=== PATIENT | male | born 1975 | race Caucasian/White ===

== ENCOUNTER 2018-05-18 08:30 | Emergency (ER) | payer OTHER ==
[~2018-05-18] VITALS: Ht 167.6 cm; Wt 116.1 kg
[2018-05-18 08:43] VITALS: BP 146/95
--- NOTE | 2018-05-18 08:52 | NUR ---
PT AMB TO BED2.
--- NOTE | 2018-05-18 08:52 | NUR ---
gave report to Devante BECKWITH
--- NOTE | 2018-05-18 08:53 | NUR ---
42/M bib with c/o right frontal/parietal head pain since the AM with blurry vision, nausea, left hand numbness, and shakiness. No smile/facial asymmetry noted.DENIES TRAUMA OR ACCIDENT. SKIN IS PINK/WARM/DRY; AAOX4 WITH EVEN AND STEADY GAIT; LUNGS CLEAR BL; PATIENT STATES PAIN OF 9/10 AT THIS TIME. PATIENT POSITIONED FOR COMFORT; HOB ELEVATED; BEDRAILS UP X2; BED DOWN. ER MD MADE AWARE OF PT STATUS.
--- NOTE | 2018-05-18 09:07 | NUR ---
Radha botello in ED - 05/18/18 at 0907 by [facility] Patient discharged with v/s stable. Written and verbal after care instructions given and explained. Patient verbalized understanding. Ambulatory with steady gait. All questions addressed prior to discharge. Advised to follow up with PMD.
--- NOTE | 2018-05-18 09:23 | NUR ---
EKG AT BEDSIDE.
--- NOTE | 2018-05-18 09:37 | NUR ---
Patient being evaluated by DR CAR at bedside.
[2018-05-18] MEDS ORDERED: ACETAMINOPHEN 325 MG TAB PO ONE (09:40)
[2018-05-18] MEDS ORDERED: PROCHLORPERAZINE 10 MG/2 ML VIAL IM ONE (09:40)
--- NOTE | 2018-05-18 09:49 | NUR ---
PT TAKEN TO CT VIA W/C, ACCOMPANIED BY RAMP SERVICE AGENT.
--- NOTE | 2018-05-18 10:00 | NUR ---
PT RETURNED BACK FROM CT.
--- NOTE | 2018-05-18 10:38 | NUR ---
Patient being reevaluated by DR CAR at bedside.
[2018-05-18 10:40] VITALS: BP 140/91
--- NOTE | 2018-05-18 10:40 | NUR ---
Patient discharged with v/s stable. Written and verbal after care instructions given and explained. Patient alert, oriented and verbalized understanding of instructions. Ambulatory with steady gait. All questions addressed prior to discharge. ID band removed. Patient advised to follow up with PMD. Rx of COMPAZINE given. Patient educated on indication of medication including possible reaction and side effects. Opportunity to ask questions provided and answered.
== END 2018-05-18 10:40 | disposition home or self-care (01) ==
LOC: MED 08:30
DX: R51 Headache (principal); H53.8 Other visual disturbances; R11.0 Nausea; J45.909 Unspecified asthma, uncomplicated
CPT/HCPCS: 70450; 82948; 93005; 96372; 99284; J0780

== ENCOUNTER 2018-11-23 16:22 | Emergency (ER) | payer OTHER ==
[~2018-11-23] VITALS: Ht 172.7 cm; Wt 109.9 kg
--- NOTE | 2018-11-23 16:29 | NUR ---
PT AMBULATES TO BED 7
[2018-11-23] MEDS ORDERED: FAMOTIDINE 20 MG/2 ML VIAL IVP ONE (16:30)
[2018-11-23] MEDS ORDERED: EPINEPHrine 1:1000 - 1 MG/ML AMP SUBQ ONE (16:30)
[2018-11-23] MEDS ORDERED: DEXAMETHASONE 10 MG/ML VIAL IVP ONE (16:30)
[2018-11-23] MEDS ORDERED: hydrOXYzine HCL 25 MG TAB PO ONE (16:30)
[2018-11-23] MEDS ORDERED: diphenhydrAMINE 50 MG/ML VIAL IVP ONE (16:30)
--- NOTE | 2018-11-23 16:30 | NUR ---
Patient being evaluated by physician at bedside.
[2018-11-23 16:31] VITALS: BP 154/91
--- NOTE | 2018-11-23 16:37 | NUR ---
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 UPON INSPECTION, THROAT SWOLLEN MUCOSA RED, PT DROOLING, STATES ITS HARD TO SWALLOW. PT STATES HE FEELS DIZZY AND WEAK. VSS; PATIENT POSITIONED FOR COMFORT; HOB ELEVATED; BEDRAILS UP X1; BED DOWN. ER MD MADE AWARE OF PT STATUS.
--- NOTE | 2018-11-23 16:43 | NUR ---
[facility] GIVEN ORDERED ENCOURAGED PATIENT FOR INTERMITTENT DEEP BRFEATHING DURING THEEAPY
[2018-11-23] MEDS ORDERED: ALBUTEROL 0.083% 2.5 MG/3 ML NEBU INH ONE ×2 (16:45→16:49)
--- NOTE | 2018-11-23 17:45 | NUR ---
PT RESTING; TOLERATING MEDS WELL.
--- NOTE | 2018-11-23 19:05 | NUR ---
Patient discharged with v/s stable. Written and verbal after care instructions given and explained. Patient alert, oriented and verbalized understanding of instructions. Ambulatory with steady gait. All questions addressed prior to discharge. ID band removed. Patient advised to follow up with PMD. Rx of PREDNISONE, ATARAX, EPIPEN given. Patient educated on indication of medication including possible reaction and side effects. Opportunity to ask questions provided and answered.
[2018-11-23 19:11] VITALS: BP 141/68
== END 2018-11-23 19:05 | disposition home or self-care (01) ==
LOC: MED 16:22
DX: T63.441A Toxic effect of venom of bees, accidental (unintentional), initial encounter (principal); T78.2XXA Anaphylactic shock, unspecified, initial encounter; J45.909 Unspecified asthma, uncomplicated; Z91.030 Bee allergy status; Y92.89 Other specified places as the place of occurrence of the external cause
CPT/HCPCS: 94640; 96372; 96374; 96375; 99283; J0171; J1100; J1200; J3490; J7613

== ENCOUNTER 2019-05-22 12:13 | Emergency (ER) | payer OTHER ==
[~2019-05-22] VITALS: Ht 172.7 cm; Wt 108.0 kg
[2019-05-22 12:29] VITALS: BP 145/83
--- NOTE | 2019-05-22 12:37 | NUR ---
W/C ASSISTED TO BED 7
--- NOTE | 2019-05-22 13:02 | NUR ---
43M C/O GERALDINE FOOT PAIN & REDNESS, SWELLING BLISTER X YESTERDAY. OPEN BLISTERS NOTED ON TOES ON B/L FEET. NO DRAINAGE AT THIS TIME. PT STATES THIN YELLOW/BROWN DRAINAGE YESTERDAY WITH FOUL ODOR. PT WORKS AT [employer], STATES WAS WEARING TIGHT SHOES AND SWEATING A LOT. ABLE TO AMBULATE BUT STATES PAIN OF 10/10 AND ALSO INCREASED SWELLING. STATES NO PAIN NOW WHILE RESTING IN BED. DENIES FEVER, CHILLS. NAD. MED HX : DENIES
--- NOTE | 2019-05-22 13:13 | NUR ---
DR FOUNTAIN AT BEDSIDE EVALUATING PT.
[2019-05-22] MEDS ORDERED: KETOROLAC 15 MG/ML VIAL IM ONE (13:20)
[2019-05-22] MEDS ORDERED: LIDOCAINE 4% 40 MG/ML BTL TP ONE (13:25)
--- NOTE | 2019-05-22 13:25 | NUR ---
IM TORADOL 15MG GIVEN TO LEFT DELTOID AT THIS TIME.
[2019-05-22] MEDS ORDERED: KETOROLAC 15 MG/ML VIAL ONE (13:33)
--- NOTE | 2019-05-22 13:50 | NUR ---
Radha botello in ED - 05/22/19 at 1403 by [facility] APPLIED LIDOCAINE EMLA TO LEFT MEDIAL FOOT ABSCESS PER ORDERS.
[2019-05-22] MEDS ORDERED: LIDOCAINE/PRILOCAINE 2.5% 5 GM TUBE TP ONE ×2 (13:55→14:03)
--- NOTE | 2019-05-22 13:56 | NUR ---
EMLA LIDOCAINE APPLIED TO PT FOOT TOPICALLY.
--- NOTE | 2019-05-22 15:17 | NUR ---
DR FOUNTAIN REEVALUATING PATIENT AT BEDSIDE.
--- NOTE | 2019-05-22 15:40 | NUR ---
Patient discharged with v/s stable. Written and verbal after care instructions given and explained. Patient alert, oriented and verbalized understanding of instructions. Ambulatory with steady gait. All questions addressed prior to discharge. ID band removed. Patient advised to follow up with PMD. Rx of LAMISIL given. Patient educated on indication of medication including possible reaction and side effects. Opportunity to ask questions provided and answered.
[2019-05-22 15:47] VITALS: BP 132/69
== END 2019-05-22 15:40 | disposition home or self-care (01) ==
LOC: MED 12:13
DX: L02.612 Cutaneous abscess of left foot (principal); B35.3 Tinea pedis; J45.909 Unspecified asthma, uncomplicated; Z91.030 Bee allergy status
CPT/HCPCS: 10060; 96372; 99283; J1885

== ENCOUNTER 2019-08-10 16:21 | Emergency (ER) | payer OTHER ==
[~2019-08-10] VITALS: Ht 175.3 cm; Wt 111.1 kg
[2019-08-10 16:21] VITALS: BP 141/96
--- NOTE | 2019-08-10 18:04 | NUR ---
PATIENT LEFT WITHOUT BEING SEEN BY DR. CAR. NO FURTHER CARE PROVIDED FOR PATIENT.
== END 2019-08-10 18:04 | disposition left against medical advice (07) ==
LOC: MED 16:21
DX: R06.00 Dyspnea, unspecified (principal); R42 Dizziness and giddiness; Z53.21 Procedure and treatment not carried out due to patient leaving prior to being seen by health care provider

== ENCOUNTER 2022-04-29 19:55 | Emergency (ER) | payer OTHER ==
[~2022-04-29] VITALS: Ht 175.3 cm; Wt 127.0 kg
[2022-04-29 20:37] VITALS: BP 138/82
--- NOTE | 2022-04-29 21:11 | NUR ---
PT IN ROOM 5. PT IN GOWN IN BED
--- NOTE | 2022-04-29 21:16 | NUR ---
46YR OLD MALE BIB SELF C/O "BALL " ON RECTUM X1WEEK . PAIN LEVEL 8/10. PT STATES ITS A "BURNING " FEELING ON THE LEFT SIDE OF RECTUM. DENIES INJURY OR TRAUMA. DENIES KNOWLEDGE OF ANY HEMORRIHOIDS. PT IN GOWN ON GRUNEY. BED AT LOWEST POSITION. ASTHMA NKDA
[2022-04-29] MEDS ORDERED: NAPR-54 PO (22:56)
[2022-04-29] MEDS ORDERED: CEPH-588 PO (22:56)
--- NOTE | 2022-04-29 23:05 | NUR ---
Patient discharged with v/s stable. Written and verbal after care instructions given and explained. Patient alert, oriented and verbalized understanding of instructions. Ambulatory with steady gait. All questions addressed prior to discharge. ID band removed. Patient advised to follow up with PMD. Rx of KEFLEX NAPROSYN given. Patient educated on indication of medication including possible reaction and side effects. Opportunity to ask questions provided and answered.
--- NOTE | 2022-04-29 23:05 | NUR ---
Chart checked and completed.
[2022-04-29 23:30] VITALS: BP 138/82
== END 2022-04-29 23:05 | disposition home or self-care (01) ==
LOC: MED 19:55
DX: K61.1 Rectal abscess (principal); J45.909 Unspecified asthma, uncomplicated
CPT/HCPCS: 46040; 99284

== ENCOUNTER 2024-06-07 16:04 | Emergency (ER) | payer OTHER ==
[~2024-06-07] VITALS: Ht 175.3 cm; Wt 99.8 kg
[~2024-06-07 16:04] MED LIST: CEPH-588 PO; NAPR-337 PO
[2024-06-07 16:10] VITALS: BP 145/87; PULSE 80; RESP 22; TEMP 98.3; O2SAT 98
[2024-06-07] MEDS ORDERED: ALBUTEROL SULFATE/IPRATROPIU 3 ML SOL IH ONE (16:10)
[2024-06-07] MEDS: IPRATROPIUM 0.02% 0.5 MG/2.5 ML NEBU INH ONE (16:25)
[2024-06-07] MEDS: ALBUTEROL 0.083% 2.5 MG/3 ML NEBU INH ONE (16:25)
[2024-06-07 16:26] VITALS: PULSE 80; RESP 16; O2SAT 97
[2024-06-07] MEDS: MIDAZOLAM 2 MG/2 ML VIAL IM ONE (17:39)
[2024-06-07] MEDS ORDERED: ALBU0.0912 IH (18:06)
[2024-06-07 18:10] VITALS: BP 138/84; PULSE 78; RESP 16; TEMP 98.3; O2SAT 97
== END 2024-06-07 18:12 | disposition home or self-care (01) ==
LOC: MED 16:04
DX: J45.901 Unspecified asthma with (acute) exacerbation (principal); Z79.899 Other long term (current) drug therapy
CPT/HCPCS: 94640; 96372; 99283; J2250; J7613; J7644

== ENCOUNTER 2024-06-23 16:14 | Emergency (ER) | payer OTHER ==
[~2024-06-23] VITALS: Ht 175.3 cm; Wt 86.2 kg
[~2024-06-23 16:14] MED LIST changes: +ALBU0.0912 IH
[2024-06-23 16:31] VITALS: BP 135/87; PULSE 90; RESP 20; TEMP 97.3; O2SAT 99
[2024-06-23] MEDS: LORazepam 1 MG TAB PO ONE (16:43)
[2024-06-23] MEDS ORDERED: ATA25 PO (17:12)
[2024-06-23 17:24] VITALS: BP 115/80; PULSE 80; RESP 16; TEMP 97.3; O2SAT 98
== END 2024-06-23 17:24 | disposition home or self-care (01) ==
LOC: MED 16:14
DX: F41.0 Panic disorder [episodic paroxysmal anxiety] (principal); R42 Dizziness and giddiness; R07.89 Other chest pain; R55 Syncope and collapse; J45.909 Unspecified asthma, uncomplicated; Z79.899 Other long term (current) drug therapy
CPT/HCPCS: 93005; 99283

== ENCOUNTER 2024-07-04 01:26 | Emergency (ER) | payer OTHER ==
[~2024-07-04] VITALS: Ht 175.3 cm; Wt 99.8 kg
[~2024-07-04 01:26] MED LIST changes: +ATA25 PO
[2024-07-04 01:34] VITALS: BP 137/88; PULSE 108; RESP 18; TEMP 97.4; O2SAT 97
[2024-07-04 01:40] VITALS: O2SAT 97
[2024-07-04] MEDS: KETOROLAC 60 MG/2 ML VIAL IM ONE (04:34)
[2024-07-04] MEDS ORDERED: IBUP-2213 PO (05:11)
[2024-07-04 05:41] VITALS: BP 137/88; PULSE 108; RESP 18; TEMP 97.4; O2SAT 97
== END 2024-07-04 05:41 | disposition home or self-care (01) ==
LOC: MED 01:26
DX: R07.89 Other chest pain (principal); R11.2 Nausea with vomiting, unspecified; R03.0 Elevated blood-pressure reading, without diagnosis of hypertension; J45.909 Unspecified asthma, uncomplicated; Z79.899 Other long term (current) drug therapy
CPT/HCPCS: 93005; 96372; 99283; J1885